=== PATIENT | male | born 1975 | race Caucasian/White ===

== ENCOUNTER 2017-01-15 11:12 | Day surgery (SDC) | payer OTHER ==
[2017-01-15] VITALS (7 sets, daily range): BP systolic 82–111; BP diastolic 42–61; PULSE 56–70; RESP 15–20; O2SAT 94–100
[~2017-01-15] VITALS: Ht 176.5 cm; Wt 84.4 kg
[~2017-01-15 11:12] MED LIST: CeFAZolin 2 Gm/50 mL D5W IV Premix IV ONE; Lactated Ringer's 1,000 ML IV ONE
[2017-01-15] MEDS ORDERED: Propofol 10,000 mCg/mL 20 mL Inj ONE (11:13)
[2017-01-15] MEDS ORDERED: Ondansetron 2 mg/mL 2 mL Inj ONE (11:13)
[2017-01-15] MEDS ORDERED: Dexamethasone 4 mg/mL Inj ONE (11:13)
[2017-01-15] MEDS ORDERED: fentaNYL-PF 50 mCg/mL 2 mL Inj ONE (11:13)
[2017-01-15] MEDS ORDERED: MetoCLOpramide 5 mg/mL 2 mL Inj ONE (11:13)
[2017-01-15] MEDS ORDERED: CeFAZolin 2 Gm/50 mL D5W Duplex Bag IV ONE (11:31)
--- NOTE | 2017-01-15 14:33 | PCM.HPANE ---
Patient Data Surgeon Admitting Provider: Attending Provider:Sakina Harrison MD Primary Care Physician:Alesha Other Provider:Hal Sweet Anesthesia Reason for Visit Bladder Stone Ht/WT & BMI Height (Feet): 5 Height (Inches): 9.5 Weight (Kilograms): 84.4 Body Mass Index 26.00 Allergies Coded Allergies: No Known Allergies (Unverified , 01/11/17) Past Anesthesia History Anesthesia History: Denies:: Abnormal Airway, Anesthesia Reactions, Difficult Intubation, Fam Anesthesia Reaction Diabetes History Hx Diabetes?: No MRSA MRSA: No Medications Hypertension Medication: No Home Meds Incl Beta Osman: No No Active Prescriptions or Reported Meds History History of ENT Problems?: No HEENT History: Denies:: Abnormal Airway Cataracts Difficult Intubation Dysphagia Glaucoma Hearing Problem Sinus Problem TMJ Denture Type: None Teeth Condition: Within Normal Limits Hx of Heart Problems?: No Cardiovascular History: Denies:: AICD Abdominal Aortic Aneurism Cardiac Surgery Chest Pain Congestive Heart Failure Coronary Artery Disease Edema Heart Murmur Hypertension Irregular Heartbeat Pacemaker Peripheral Vascular Rheumatic Fever Thrombophlebitis Valvular Heart Disease Hx of Respiratory Problem?: No Respiratory History: Denies:: Asthma COPD Emphysema Oxygen Administration Pneumonia Tuberculosis Use of C-PAP Machine Use of Inhalers / NEBS Hx Neurologic Problems?: Yes Neurological History: Denies:: CVA Multiple Sclerosis Parkinson's Disease Seizures Other Neurological Pertinent: spinal cord injury 2016 with partial paralysis- able to move all extremities- walks with canes Hx of GI Problems?: Yes Hx of Problems?: Yes Genitourinary History: Positive for:: Kidney Stones (bladder stones r/t neurogenic bladder ) Other Pertinent History: pt has neurogenic bladder r/t spinal cord injury 2014- some sensation- wears condom cath Male Hx: Denies:: Prostate Problems Skin History: Denies:: History Skin Disorders? Pressure Ulcers Hx Musculoskeletal Problems?: Yes Musculoskeletal History: Positive for:: Back Injury (C6-7 injury with plate stabilization 2014) Osteoarthritis Denies:: Fibromyalgia Joint Replacement Hx of Psycho/Social Problems?: No Hx Surgeries?: Yes (C6-7 plate stabilization injury, gum surgery) Hx Any Other Health Problems?: Yes Other History: Denies:: Cancer Thyroid Disease History Blood Transfusions: Positive for:: Accept Blood Products? Denies:: Blood Transfusions Hx Diabetes: No Hx Alcohol Use: NoHx Substance Use: NoHave You Smoked inLast 12 mo: No Stop/Bang Treated for Sleep Apnea?: No Do You Have a CPAP Machine?: No P-Blood Pressure: treated: No B- Body Mass Index > 35 kg/m2: No A- Age over 50: No N- Neck Large Circumference: No G- Gender Male: Yes MAXIMINO Risk Assessment: Low Risk, <3 Yes Risk Assessment Category Category 1A: Patient has history of documented sleep apnea, and HAS NOT received any narcotic, sedative or anesthesia administration during this stay. Category 1B: Patient has history of documented sleep apnea, and HAS received any narcotic , sedative or anesthesia administration during this stay Category 2: Patient has SUSPECTED Obstructive Sleep Apnea, and HAS received any narcotic , sedative or anesthesia administration during this stay. Category 3: Patient has SUSPECTED Obstructive Sleep Apnea and HAS NOT received narcotic, sedative or anesthesia administration during this stay. Category 4: Outpatient in Procedural Areas with known sleep apnea or who screen positive for High Risk via the STOP/BANG questionnaire. Exam Exam Vital Signs Vital Signs Date Time Temp Pulse Resp B/P Pulse Ox O2 Delivery O2 Flow Rate FiO2 01/15/17 11:44 36.1 70 15 111/60 94 Room Air General Appearance: Oriented X3 HEENT/AIRWAY: MP 2 Lungs: Normal Air Movement Heart: Regular Rate/Rhythm Meds/Labs/Diagnostics Admission Meds Current Medications Lactated Ringer's (Lr) 1,000 ml @ 120 mls/hr Q8H20M ONCE IV Last administered on 01/15/17t 11:28; Start 01/15/17 at 05:00; Stop 01/15/17 at 13:19; Status DC Plan Impression Patient chart reviewed, patient interviewed and anesthestic plan with risks, benefits, and alternatives discussed, and informed consent obtained. ASA Physical Status: ASA4 Life Threatening Anesthetic Plan: GA Bene/Risks/Altern/Consents: Yes HP Complete Prior to Induction: Yes Jean Carlos Dockery MD Jan 15, 2017 14:33
[2017-01-15] MEDS ORDERED: HYDROcodone-APAP 5-325 mg Tablet PO PRN (15:55)
--- NOTE | 2017-01-15 20:51 | OP ---
[address] [address] OPERATIVE REPORT PATIENT: BANDAR MAHER : 1975 MR#: [id number] ADMIT: 01/15/2017 JOB ID: [id number] DATE OF SURGERY: 01/15/2017 PREOPERATIVE DIAGNOSIS(ES): Bladder stone. POSTOPERATIVE DIAGNOSIS(ES): Bladder stone. PROCEDURE PERFORMED: 1. Cystoscopy. 2. Cystolitholapaxy. SURGEON: Sakina Harrison MD. FINDINGS: 1. Bilateral orthotopic ureteral orifices. 2. Three disk-shaped bladder stones, each approx 2 cm ANESTHESIA: General. ESTIMATED BLOOD LOSS: Less than 5 mL. DRAINS: None. SPECIMENS: Bladder stone for gross. COMPLICATIONS: None. CONDITION: Stable. INDICATION FOR PROCEDURE: The patient is a 41-year-old man with a history of cervical spine injury. He has a history of urinary retention and bladder stones. He is currently managed on a condom catheter as this is his preference. He understands that bladder stones are a consequence of urinary retention. He did not want any further intervention other than having these bladder stones removed. DESCRIPTION OF PROCEDURE: After informed consent was obtained, the patient was taken to the operating room. A time-out was performed identifying correct patient, surgical site, and procedure. General anesthesia was smoothly induced. He was placed in a lithotomy position and all pressure points were identified and appropriately padded. His genitals were then prepped and draped in a sterile fashion. He was given intravenous antibiotics prior to the start of the procedure. The urethra was just a bit inadequate to emit the 22-Malawian rigid cystoscope. The urethral meatus only was dilated in succession up to 28-Malawian. The cystoscope was then reapplied into the urethra and advanced into the bladder without any problems. The bladder was drained. The bladder was inspected. There were three disk-shaped stones present there. It was decided to attempt using the stone drywall stripper helper. The 22-Malawian sheath was then exchanged for a 25-Malawian sheath and the stone drywall stripper helper was used to break each of the stones into small fragments and they were evacuated intermittently. At the end of the procedure, the bladder was systematically inspected and there were no further stones. All the fragments had been evacuated and the bladder appeared clean. The bladder was emptied and the instruments removed from the patient's body. The patient was then reversed from general anesthesia and taken to PACU in good and stable condition. ERI
--- NOTE | 2017-01-16 08:06 | PCM.ANEP1 ---
Post Anesthesia PACU Phase 1 Assessment Anesthetic Administered: GA Level of Alertness: Awake, talking Pain: No Nausea or Vomiting: No CV Function & Hydration Stable: Yes Airway Device: Lungs: Normal Air Movement PACU Phase 2 Assessment Patient Instructions Provided: N/A Jean Carlos Dockery MD Jan 16, 2017 08:06
--- NOTE | 2017-01-17 14:55 | PATH ---
SURGICAL PATHOLOGY Attending Physician:Sakina Harrison, CASE STATUS: Signed Out PATIENT NAME: BANDAR MAHER PID: [id number] : 1975 DATE COLLECTED:01/15/2017 00:00 SPECIMEN: Stone, NOS CLINICAL HISTORY: BLADDER STONE 1). BLADDER STONE(S) FOR GROSS FINAL DIAGNOSIS: Bladder Stone(s), Removal: Gross only diagnosis. ICD10: N21.0 GROSS DESCRIPTION: The specimen is received unfixed, labeled with the patient's name, sublabeled as bladder stones for gross, and consists of multiple fragments of wilkes solid and brittle mineralized tissue (3.0 x 2.3 x 0.5 cm in aggregate). The specimen is not suitable for histological analysis; therefore, no sections are submitted. 01/16/17 ICD-9 CODES: CPT CODES: 1: 70901 Electronically Signed Out Betina Burroughs MD Merged With [facility]ology [facility] [address], [place] [address] Technical component performed at [facility], [address] [place] [address] Ave[address], [place], [address]
== END 2017-01-15 23:59 | disposition home or self-care (01) ==
LOC: SAS 11:12
PROVIDERS: ATTEND Urology
DX: N21.0 Calculus in bladder (principal); N31.9 Neuromuscular dysfunction of bladder, unspecified; R33.9 Retention of urine, unspecified; M19.90 Unspecified osteoarthritis, unspecified site; Z87.828 Personal history of other (healed) physical injury and trauma
CPT/HCPCS: 52318; 88300; J0690; J1100; J2405; J2765; J3010; J7120